=== PATIENT | female | born 1960 | race Asian ===

== ENCOUNTER 2019-05-13 17:29 | Outpatient (CLI) | payer BC | END 2019-05-13 19:31 | disposition home or self-care (01) | LOC: RAD 17:29 | DX: M79.651 Pain in right thigh (principal); R22.41 Localized swelling, mass and lump, right lower limb ==

== ENCOUNTER 2019-12-22 12:00 | Emergency (ER) | payer OTHER ==
[~2019-12-22] VITALS: Ht 157.5 cm; Wt 83.9 kg
[2019-12-22 12:14] VITALS: TEMP 98.7
[2019-12-22 12:52] LABS: POTASSIUM 3.9 mmol/L (3.6-5.2)
[2019-12-22 12:54] LABS: PLATELET COUNT 260 K/uL (152-353)
[2019-12-22 13:08] LABS: PARTIAL THROMBOPLASTIN TIME 26.2 SECONDS (24.5-33.6)
[2019-12-22 14:30] VITALS: BP 180/74
== END 2019-12-22 14:30 | disposition home or self-care (01) ==
LOC: ED 12:00
PROVIDERS: Family Medicine
DX: I16.0 Hypertensive urgency (principal); G44.89 Other headache syndrome
CPT/HCPCS: 80053; 81000; 85027; 85610; 85730; 96374; 99284; J2405

== ENCOUNTER 2020-01-04 15:13 | Outpatient (CLI) | payer OTHER | END 2020-01-04 23:59 | disposition home or self-care (01) | LOC: MAMMO 15:13 | DX: Z12.31 Encounter for screening mammogram for malignant neoplasm of breast (principal) ==